=== PATIENT | female | born 1955 | race Caucasian/White ===

== ENCOUNTER 2022-07-10 14:08 | Emergency (ER) | payer OTHER, MEDICARE ==
[~2022-07-10] VITALS: Ht 160 cm; Wt 52.2 kg
[~2022-07-10 14:08] MED LIST: KETO10 PO; Norco 5-325 Ta1 EACH PO
[2022-07-10] MEDS ORDERED: AMOCLA875 PO (14:34)
[2022-07-11] MEDS ORDERED: Monodox100 MG PO (14:02)
== END 2022-07-10 16:00 | disposition home or self-care (01) ==
LOC: ER 14:08
DX: S81.852A Open bite, left lower leg, initial encounter (principal); W54.0XXA Bitten by dog, initial encounter; H91.90 Unspecified hearing loss, unspecified ear; Z23 Encounter for immunization
CPT/HCPCS: 90714

== ENCOUNTER 2023-07-09 11:27 | Emergency (ER) | payer MEDICARE ==
[~2023-07-09] VITALS: Ht 152.4 cm; Wt 56.7 kg
[~2023-07-09 11:27] MED LIST changes: +AMOCLA875 PO; +Monodox100 MG PO
[2023-07-09 12:00] VITALS: BP 148/73
== END 2023-07-09 14:32 | disposition home or self-care (01) ==
LOC: ER 11:27
DX: S92.535A Nondisplaced fracture of distal phalanx of left lesser toe(s), initial encounter for closed fracture (principal); W20.8XXA Other cause of strike by thrown, projected or falling object, initial encounter
CPT/HCPCS: 73620; 99283-25

== ENCOUNTER 2024-12-23 21:17 | Emergency (ER) | payer OTHER, MEDICARE ==
[~2024-12-23] VITALS: Ht 162.6 cm; Wt 63.5 kg
[2024-12-23 21:27] VITALS: BP 128/91
== END 2024-12-23 21:44 | disposition home or self-care (01) ==
LOC: ER 21:17
DX: S50.12XA Contusion of left forearm, initial encounter (principal); V49.60XA Unspecified car occupant injured in collision with unspecified motor vehicles in traffic accident, initial encounter
CPT/HCPCS: 99283